=== PATIENT | male | born 1980 | race Caucasian/White ===

== ENCOUNTER 2020-05-14 12:22 | Emergency (ER) | payer BC ==
[2020-05-14 12:30] VITALS: BP 151/95; PULSE 101; RESP 18; TEMP 98.8
[2020-05-14] MEDS ORDERED: TOBRAMYCIN 0.3% OPHTH DROPS 5 ML BTL RIGHT EYE STA (13:07)
--- NOTE | 2020-05-14 13:07 | ED ---
Eye Problem HPI - General Chief complaint: Eye Problems Stated complaint: [facility] Time Seen by Provider: 05/14/20 12:31 Source: patient, RN notes reviewed, old records reviewed Mode of arrival: ambulatory Limitations: no limitations - History of Present Illness Initial comments: This is a 40-year-old male presented today for evaluation of right eye pain patient has history of right eye conjunctivitis states he has significant drainage last 2 days redness of the persistent he has flushing the eye with states he discontinued. Remains pain. No significant swelling some minor blurry vision. No issues no possible is a foreign body no vision changes. Patient states is complaining of severe itchiness some pain redness and drainage MD chief complaint: eye pain, eye redness -: days(s) (2) Onset Description: gradual Location: right eye Place: home If Injury: none Eye Symptoms: redness, itching, discharge Severity: moderate Severity scale (1-10): 4 Consistency: constant Context: recent uri Associated Symptoms: none Treatments Prior to Arrival: none - Related Data Allergies Allergy/AdvReac Type Severity Reaction Status Date / Time No Known Allergies Allergy Verified 05/14/20 12:30 Review of Systems ROS Statement: Those systems with pertinent positive or pertinent negative responses have been documented in the HPI. ROS Other: All systems not noted in ROS Statement are negative. Past Medical History Past Medical History: No Reported History History of Any Multi-Drug Resistant Organisms: None Reported Past Surgical History: Ear Surgery, Orthopedic Surgery Past Psychological History: No Psychological Hx Reported Smoking Status: Current every day smoker Past Alcohol Use History: Occasional Past Drug Use History: None Reported General Exam Limitations: no limitations General appearance: alert, in no apparent distress Head exam: Present: atraumatic, normocephalic, normal inspection Eye exam: Present: normal appearance, PERRL, EOMI, conjunctival injection (Right eye does show injection and drainage), other (Note patient changes). Absent: scleral icterus, periorbital swelling ENT exam: Present: normal exam, mucous membranes moist Neck exam: Present: normal inspection. Absent: tenderness, meningismus, lymphadenopathy Respiratory exam: Present: normal lung sounds bilaterally. Absent: respiratory distress, wheezes, rales, rhonchi, stridor Cardiovascular Exam: Present: regular rate, normal rhythm, normal heart sounds. Absent: systolic murmur, diastolic murmur, rubs, gallop, clicks GI/Abdominal exam: Present: soft, normal bowel sounds. Absent: distended, tenderness, guarding, rebound, rigid Extremities exam: Present: normal inspection, full ROM, normal capillary refill. Absent: tenderness, pedal edema, joint swelling, calf tenderness Back exam: Present: normal inspection Neurological exam: Present: alert, oriented X3, CN II-XII intact Psychiatric exam: Present: normal affect, normal mood Skin exam: Present: warm, dry, intact, normal color. Absent: rash Course Vital Signs 05/14/20 12:27 Temperature 98.8 F Pulse Rate 101 H Respiratory 18 Rate Blood Pressure 151/95 O2 Sat by Pulse 98 Oximetry - Reevaluation(s) Reevaluation #1: Medical records reviewed Patient given ophthalmic drops here in the ER Medical Decision Making - Medical Decision Making 40 male that she'll conjunctivitis onset with history of contact use, patient placed on antibiotic drops and can be discharged home Disposition Clinical Impression: [facility] disease of right eye, Bacterial conjunctivitis Disposition: HOME SELF-CARE Condition: Good Instructions (If sedation given, give patient instructions): Conjunctivitis (ED) Is patient prescribed a controlled substance at d/c from ED?: No Referrals: Mando Sapp DO [Primary Care Provider] - 1-2 days
== END 2020-05-14 13:35 | disposition home or self-care (01) ==
LOC: EC 12:22
DX: H10.021 Other mucopurulent conjunctivitis, right eye (principal); F17.200 Nicotine dependence, unspecified, uncomplicated
CPT/HCPCS: 99283

== ENCOUNTER 2020-12-26 01:03 | Emergency (ER) | payer BC, OTHER ==
[2020-12-26 01:51] VITALS: BP 157/81; PULSE 79; RESP 18; TEMP 97.6
== END 2020-12-26 03:10 ==
LOC: EC 01:03
DX: Z53.9 Procedure and treatment not carried out, unspecified reason (principal)